=== PATIENT | female | born 2000 | race Hispanic/Latino ===

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

== ENCOUNTER 2018-09-07 19:00 | Emergency (ER) | payer SELFPAY ==
[2018-09-07] MEDS ORDERED: Ibuprofen 200 MG TAB ONE (19:47)
== END 2018-09-07 19:54 | disposition home or self-care (01) ==
LOC: ERS 19:00
DX: S01.01XA Laceration without foreign body of scalp, initial encounter (principal); W22.8XXA Striking against or struck by other objects, initial encounter
CPT/HCPCS: 99283